=== PATIENT | female | born 1945 | race African-American/Black ===

== ENCOUNTER → 2017-04-08 | Outpatient (CLI) | payer MEDICAID, MEDICARE ==
[2014-08-26 15:00] VITALS: BP 147/87
[~2017-04-08] MED LIST: DILT180C2 PO; HYDR12.58 PO; LISI-334 PO; LISI1TAB7 PO; OXYC1TAB7 PO; POTA20TA82 PO
--- NOTE | 2017-04-08 10:28 | RAD ---
Exam performed: Right upper quadrant ultrasound. History: Right upper quadrant abdominal pain, history of ascites. Date of service: 04/08/17. Comparison: CT abdomen and pelvis from 08/18/14 Technique: Real-time grayscale imaging of the right upper abdomen is performed and images are obtained. Findings: The liver is normal in size and echogenicity without focal lesions. There is no intra or extrahepatic biliary ductal dilatation. Common bile duct is nondilated. Large shadowing gallstone measuring greater than 1.9 cm. No pericholecystic fluid or gallbladder wall thickening is identified. Patient reports tenderness in the right upper quadrant while scanning. The right kidney measures 9.0 x 4.3 x 5.0 cm. The visualized pancreas and IVC appear normal. No free fluid. Impression: Cholelithiasis. Although there is no evidence of gallbladder wall thickening or pericholecystic fluid, however the sonographic White's sign raises concern for early acute cholecystitis.
== END | disposition home or self-care (01) ==
LOC: US 09:14
PROVIDERS: ATTEND Internal Medicine
DX: K80.20 Calculus of gallbladder without cholecystitis without obstruction (principal); Z87.19 Personal history of other diseases of the digestive system
CPT/HCPCS: 76705

== ENCOUNTER → 2017-07-06 | Outpatient (CLI) | payer MEDICARE ==
[2014-08-26 15:00] VITALS: BP 147/87
[~2017-07-06] MED LIST changes: +ACET1TAB30 PO; +NAPR500T PO; +OXYC-323 PO
[2017-07-06 13:47] LABS: BASO # 0.1 x10^3/uL (0.0-0.2); BASO % 1 % (0-3); EOS % 3 % (0-3); HEMATOCRIT 31.6 % (36.0-47.0); HEMOGLOBIN 10.6 g/dL (12.0-15.5); LYMPH # 2.4 x10^3/uL (1.0-4.8); LYMPH % 32 % (24-48); MEAN CORPUSCULAR HEMOGLOBIN 31 pg (25-35); MEAN CORPUSCULAR HGB CONC 34 g/dL (31-37); MEAN CORPUSCULAR VOLUME 91 fL (79-100); MONO % 6 % (0-9); NEUT % 59 % (31-73); PLATELET COUNT 245 x10^3/uL (140-400); RED BLOOD COUNT 3.47 x10^6/uL (3.50-5.40); RED CELL DISTRIBUTION WIDTH 14.8 % (11.5-14.5); WHITE BLOOD COUNT 7.4 x10^3/uL (4.0-11.0)
[2017-07-06 14:10] LABS: ALBUMIN 3.9 g/dL (3.4-5.0); CALCIUM 9.4 mg/dL (8.5-10.1); CREATININE 1.3 mg/dL (0.6-1.0); GFR 49.1; POTASSIUM 4.2 mmol/L (3.5-5.1); TOTAL BILIRUBIN 0.3 mg/dL (0.2-1.0); TOTAL PROTEIN 7.9 g/dL (6.4-8.2)
== END | disposition home or self-care (01) ==
LOC: SURGPAT 12:14
PROVIDERS: ATTEND Surgery
DX: Z01.818 Encounter for other preprocedural examination (principal)
CPT/HCPCS: 36415; 80053; 85027

== ENCOUNTER 2017-07-13 08:54 | Day surgery (SDC) | payer MEDICARE ==
[~2017-07-13] VITALS: Ht 162.6 cm; Wt 68.9 kg
[~2017-07-13 08:54] MED LIST changes: +BUPIVAC MPF-EPI 0.5%-1:200000 30 ML VIAL. ONE; +HYDROmorphone 2 MG/ML VIAL IV PRN; +IOHEXOL 300 MG/ML 50 ML VIAL. ONE; +IV RINGERS,LACTATED 1000ML 1,000 ML IV SCH; +LIDOCAINE 1% 1 ML SYRINGE. ID PRN; +ONDANSETRON PF 4 MG/2 ML VIAL. IV PRN; -OXYC-323 PO; +PROCHLORPERAZINE 10 MG/2 ML VIAL. IV PRN; +SURGICEL HEMOSTAT 4X8 EACH. ONE; +fentaNYL PF VIAL 100 MCG/2 ML VIAL IV PRN
[2017-07-13] MEDS ORDERED: PROPOFOL 20 ML IV ONE (10:01)
[2017-07-13] MEDS ORDERED: ONDANSETRON PF 4 MG/2 ML VIAL. ONE (10:02)
[2017-07-13] MEDS ORDERED: LIDOCAINE 2% PF Vial for OR 5 ML VIAL. ONE (10:02)
[2017-07-13] MEDS ORDERED: DEXAMETHASONE SOD PHOS 20 MG/5 ML VIAL. ONE (10:02)
[2017-07-13] MEDS ORDERED: fentaNYL PF VIAL 250 MCG/5 ML VIAL ONE (10:03)
[2017-07-13] MEDS ORDERED: MIDAZOLAM HCL/PF 2 MG/2 ML VIAL. ONE (10:35)
--- NOTE | 2017-07-13 10:48 | PDOC ---
Provider Note Provider Note I saw her in the preop/outpt area. questions answered and she desires to proceed. spent additional time discussing the fact that her intestinal injury risk is higher given her prior laparotomy. i will make my initial incision away from her prior incision to minimize the risk. HAKEEM SANTANA MD Jul 13, 2017 10:48
[2017-07-13] MEDS ORDERED: GLYCOPYRROLATE 1 MG/5 ML VIAL. ONE (11:05)
[2017-07-13] MEDS ORDERED: NEOSTIGMINE 10 MG/10 ML VIAL. ONE (11:20)
[2017-07-13] MEDS ORDERED: KETOROLAC 60 MG/2 ML INJ FOR OR. ONE (11:24)
[2017-07-13] MEDS ORDERED: SEVOFLURANE 31 TO 60 MINUTES. IH ONE (11:27)
--- NOTE | 2017-07-13 11:32 | RAD ---
Intraoperative cholangiogram, 07/13/2017: History: Cholecystectomy 3 spot films from surgery are presented for review. Contrast has been injected into the cystic duct remnant. 10 seconds of fluoroscopy time was utilized. There is good flow of contrast into the duodenum at the ampulla. No filling defect is seen in the common duct to suggest a retained stone. The intrahepatic bile ducts are incompletely opacified. No contrast extravasation is seen. IMPRESSION: No significant abnormality is detected.
[2017-07-13] MEDS ORDERED: PROCHLORPERAZINE 10 MG/2 ML VIAL. ONE (11:34)
[2017-07-13] MEDS ORDERED: fentaNYL PF VIAL 100 MCG/2 ML VIAL ONE ×2 (11:35→12:23)
[2017-07-13] MEDS ORDERED: OXYC-323 PO (11:41)
--- NOTE | 2017-07-13 11:47 | PDOC ---
BRIEF OPERATIVE NOTE Pre-Op Diagnosis cholelithiasis lap rene, ioc k suleiman castorena ebl 20 ivf 400 travis well to rr stable specimen HAKEEM Mason MD Jul 13, 2017 11:47
[2017-07-13] MEDS ORDERED: ceFAZolin 2GM PREMIX 2 GM/50 ML BAG IV ONE (12:00)
[2017-07-13] MEDS: fentaNYL PF VIAL 100 MCG/2 ML VIAL IV PRN ×3 (12:00→12:45)
[2017-07-13] MEDS ORDERED: MORPHINE SULFATE 2 MG/ML DISP.SYRIN. ONE (12:23)
[2017-07-13] MEDS: MORPHINE SULFATE 2 MG/ML DISP.SYRIN. IV PRN ×2 (12:33→13:04)
[2017-07-13] MEDS ORDERED: oxyCODONE/APAP 5/325 1 TAB TABLET ONE (13:14)
[2017-07-13] MEDS ORDERED: oxyCODONE/APAP 5/325 1 TAB TABLET PO ONE (13:15)
--- NOTE | 2017-07-13 13:23 | OP ---
DATE OF SURGERY: 07/13/2017 PREOPERATIVE DIAGNOSIS: Symptomatic cholelithiasis. POSTOPERATIVE DIAGNOSIS: Symptomatic cholelithiasis. PROCEDURE: Laparoscopic cholecystectomy with intraoperative cholangiogram. SURGEON: Iris Santana M.D. ANESTHESIA: General. ESTIMATED BLOOD LOSS: 20 mL. INTRAVENOUS FLUIDS: 400 mL. INDICATIONS: The patient is a 71-year-old female who presents with abdominal pain consistent with symptomatic cholelithiasis. Ultrasound confirmed cholelithiasis. FINDINGS: Intraoperative cholangiogram is normal. DESCRIPTION OF PROCEDURE: After informed consent was obtained, the patient was taken to the operating room and placed in the supine position. After adequate induction of general anesthesia, she was prepped and draped in usual sterile fashion. An epigastric incision was made with a scalpel. Subcutaneous tissue divided with cautery. The fascia was identified and opened with cautery anteriorly. A [id number] 0 Vicryl suture was placed through the fascia and clamped to be tied down. At the completion of the surgery, the rectus fiber muscles were then spread with S-retractors and the posterior fascia was incised sharply. The peritoneum was exposed and it was incised sharply. A 10 mm port was then placed directly into the peritoneal cavity and pneumoperitoneum was established under direct vision, which revealed good port placement. No evidence of entry trauma. The camera was directed back down towards the umbilicus. She had some adhesions in the midline from her previous laparotomy. An area on the right lateral abdomen just at the level of the umbilicus was free of adhesions and this area was chosen for her periumbilical port placement. The site was injected with local anesthetic. Skin incision was made and then under direct vision, a 5 mm incision was made to the right of the umbilicus. This was used then for the camera port. Camera was placed in this 5 mm incision. She was placed head up, rotated towards her left. Two additional right 5 mm lateral ports were placed under direct vision after injecting the sites with local anesthetic. The right upper quadrant was free of adhesions. The fundus of the gallbladder was retracted over liver and slightly towards the right. The infundibulum was retracted towards the right and towards her toes to open the triangle of Calot. The leading peritoneal edge was scored with cautery medially and laterally and carried back towards the liver. [place] dissector was used to dissect out the triangle of Calot. At the completion of dissection, 2 structures were seen leading directly to the gallbladder, one was a cystic artery, one was a cystic duct. The gallbladder had been dissected away from the cystic plate and the liver could be seen behind the gallbladder. She has another small arterial structure that ran between the gallbladder and liver bed ____ along the body of the gallbladder. This was able to be dissected away from the body of the gallbladder. There was 1 branch that did feed the infundibulum of the gallbladder directly. This was a small branch. Otherwise, main portion of this artery was preserved throughout the procedure. At this case, the cystic artery was clipped twice proximally and once distally and divided sharply. A clip was placed on the cystic duct adjacent to the gallbladder. Ductotomy was made with scissors. Intraoperative cholangiogram showed free flow of contrast to the cystic duct, common bile duct, common hepatic, beginning of the left and right hepatic duct and free flow of contrast into the duodenum with no filling defects noted. The catheter was removed. The cholangiogram was interpreted as normal and it was completed. Three clips were placed on the cystic duct distal to the ductotomy. Ductotomy completed with scissors. The small arterial branch that was seen in the infundibulum of the gallbladder was controlled twice with a clip power hair clipper and then divided distally. Gallbladder was removed from the bed of the liver with cautery. It was placed in laparoscopic bag and brought out through the epigastric incision. The right upper quadrant was inspected. It was hemostatic. The ports removed under direct vision. They were hemostatic. Pneumoperitoneum was desufflated. The epigastric fascial suture was then tied down and then skin incisions were closed with 4-0 Monocryl in subcuticular fashion. Sterile dressings were placed. She tolerated the procedure well. There were no apparent complications. She was then transferred in stable condition to the recovery room. IRIS SANTANA MD DR: MARCELINA/dania JOB#: [id number] / [id number]
[2017-07-13 13:45] VITALS: BP 143/69
== END 2017-07-13 14:10 | disposition home or self-care (01) ==
LOC: SURG 08:54
PROVIDERS: ATTEND Surgery
DX: K80.20 Calculus of gallbladder without cholecystitis without obstruction (principal); E78.00 Pure hypercholesterolemia, unspecified; I10 Essential (primary) hypertension; M19.90 Unspecified osteoarthritis, unspecified site; F32.9 Major depressive disorder, single episode, unspecified; Z90.710 Acquired absence of both cervix and uterus; Z86.69 Personal history of other diseases of the nervous system and sense organs; Z87.39 Personal history of other diseases of the musculoskeletal system and connective tissue
CPT/HCPCS: 47563; 74300; J0690; J1100; J1885; J2250; J2270; J2405; J2704; J2710; J3010; J3490; J7030; Q9967; J0780; J2001

== ENCOUNTER → 2017-11-25 | Day surgery (SDC) | payer MEDICARE, MEDICAID ==
[~2017-11-25] MED LIST changes: -ACET1TAB30 PO; -BUPIVAC MPF-EPI 0.5%-1:200000 30 ML VIAL. ONE; -DILT180C2 PO; -HYDR12.58 PO; -HYDROmorphone 2 MG/ML VIAL IV PRN; -IOHEXOL 300 MG/ML 50 ML VIAL. ONE; -IV RINGERS,LACTATED 1000ML 1,000 ML IV SCH; -LIDOCAINE 1% 1 ML SYRINGE. ID PRN; +LIDOCAINE 1% PF 2 ML VIAL. ID; +LIDOCAINE 2% PF Vial for OR 5 ML VIAL.; -LISI-334 PO; -LISI1TAB7 PO; +MIDAZOLAM HCL/PF 2 MG/2 ML VIAL. IV; -NAPR500T PO; -ONDANSETRON PF 4 MG/2 ML VIAL. IV PRN; -OXYC1TAB7 PO; -POTA20TA82 PO; -PROCHLORPERAZINE 10 MG/2 ML VIAL. IV PRN; +PROPOFOL 20 ML IV; -SURGICEL HEMOSTAT 4X8 EACH. ONE; +fentaNYL PF VIAL 100 MCG/2 ML VIAL IV; -fentaNYL PF VIAL 100 MCG/2 ML VIAL IV PRN
[2017-11-25] MEDS: IV RINGERS,LACTATED 1000ML 1,000 ML IV (13:50)
== END | disposition home or self-care (01) ==
LOC: ENDOS 13:01
DX: K64.0 First degree hemorrhoids (principal); E78.00 Pure hypercholesterolemia, unspecified; I10 Essential (primary) hypertension; F32.9 Major depressive disorder, single episode, unspecified; M19.90 Unspecified osteoarthritis, unspecified site; Z90.49 Acquired absence of other specified parts of digestive tract; Z90.710 Acquired absence of both cervix and uterus; Z87.39 Personal history of other diseases of the musculoskeletal system and connective tissue
CPT/HCPCS: 45378; J2704

== ENCOUNTER → 2018-03-21 | Outpatient (CLI) | payer MEDICARE, MEDICAID ==
[~2018-03-21] MED LIST changes: +CONTRAST GIVEN MC; -LIDOCAINE 1% PF 2 ML VIAL. ID; -LIDOCAINE 2% PF Vial for OR 5 ML VIAL.; -MIDAZOLAM HCL/PF 2 MG/2 ML VIAL. IV; -PROPOFOL 20 ML IV; -fentaNYL PF VIAL 100 MCG/2 ML VIAL IV
[2018-03-21 12:22] LABS: BLOOD UREA NITROGEN 22 mg/dL (7-20)
[2018-03-21 12:22] LABS: CREATININE 1.4 mg/dL (0.6-1.0)
[2018-03-21] MEDS: IOHEXOL 240 MG/ML 50ML VIAL. PO (12:59)
[2018-03-21] MEDS: IOHEXOL 300 MG/ML 100ML VIAL. IV (12:59)
== END | disposition home or self-care (01) ==
LOC: CT 11:02
DX: K43.9 Ventral hernia without obstruction or gangrene (principal); M48.061 Spinal stenosis, lumbar region without neurogenic claudication; K76.89 Other specified diseases of liver; I10 Essential (primary) hypertension; Z90.49 Acquired absence of other specified parts of digestive tract; Z90.710 Acquired absence of both cervix and uterus
CPT/HCPCS: 36415; 74177; 82565; 84520; Q9966; Q9967

== ENCOUNTER 2018-04-03 12:22 | Emergency (ER) | payer MEDICARE, MEDICAID ==
[2018-04-03 13:36] LABS: ADD MAN DIFF? NO
[2018-04-03 13:43] LABS: BASO # 0.1 x10^3/uL (0.0-0.2); BASO % 1 % (0-3); EOS # 0.4 x10^3/uL (0.0-0.7); EOS % 5 % (0-3); HEMATOCRIT 31.1 % (36.0-47.0); HEMOGLOBIN 10.4 g/dL (12.0-15.5); LYMPH # 2.7 x10^3/uL (1.0-4.8); LYMPH % 37 % (24-48); MEAN CORPUSCULAR HEMOGLOBIN 30 pg (25-35); MEAN CORPUSCULAR HGB CONC 33 g/dL (31-37); MEAN CORPUSCULAR VOLUME 91 fL (79-100); MONO # 0.7 x10^3/uL (0.0-1.1); MONO % 9 % (0-9); NEUT # 3.5 x10^3uL (1.8-7.7); NEUT % 48 % (31-73); PLATELET COUNT 268 x10^3/uL (140-400); RED BLOOD COUNT 3.42 x10^6/uL (3.50-5.40); RED CELL DISTRIBUTION WIDTH 14.1 % (11.5-14.5); WHITE BLOOD COUNT 7.3 x10^3/uL (4.0-11.0)
[2018-04-03 13:55] LABS: ANION GAP 6 (6-14); BLOOD UREA NITROGEN 19 mg/dL (7-20); BUN/CREATININE RATIO 15 (6-20); CALCIUM 9.4 mg/dL (8.5-10.1); CARBON DIOXIDE 32 mmol/L (21-32); CHLORIDE 105 mmol/L (98-107); CREATININE 1.3 mg/dL (0.6-1.0); GLUCOSE 88 mg/dL (70-99); SODIUM 143 mmol/L (136-145)
[2018-04-03 14:01] LABS: ALBUMIN 3.6 g/dL (3.4-5.0); ALBUMIN/GLOBULIN RATIO 0.9 (1.0-1.7); ALK PHOS 93 U/L (46-116); ALT (SGPT) 29 U/L (14-59); AST (SGOT) 28 U/L (15-37); TOTAL BILIRUBIN 0.2 mg/dL (0.2-1.0); TOTAL PROTEIN 7.4 g/dL (6.4-8.2)
[2018-04-03 14:08] LABS: TROPONINI < 0.017 ng/mL (0.000-0.055)
== END 2018-04-03 15:07 | disposition home or self-care (01) ==
LOC: ER 15:07
DX: R42 Dizziness and giddiness (principal); I10 Essential (primary) hypertension; M79.7 Fibromyalgia; M19.90 Unspecified osteoarthritis, unspecified site
CPT/HCPCS: 36415; 80053; 84484; 85025; 93005; 99285-25

== ENCOUNTER → 2018-04-11 | Outpatient (CLI) | payer MEDICARE, MEDICAID ==
[2018-04-11] MEDS: BARIUM SULFATE 60% 355 ML SUSP PO (08:35)
== END | disposition home or self-care (01) ==
LOC: RAD 07:55
DX: R10.31 Right lower quadrant pain (principal); R19.4 Change in bowel habit; I10 Essential (primary) hypertension; E78.00 Pure hypercholesterolemia, unspecified
CPT/HCPCS: 74250

== ENCOUNTER → 2018-08-31 | Outpatient (CLI) | payer MEDICARE, MEDICAID ==
[2018-04-03 14:55] VITALS: BP 122/63
[~2018-08-31] MED LIST changes: +ACET1TAB30 PO; -CONTRAST GIVEN MC; +DIAZ5TAB PO; +DILT180C2 PO; +GADOBUTROL 7.5 MMOL/7.5 ML VIAL IV ONE; +HYDR12.58 PO; +LISI-334 PO; +LISI1TAB7 PO; +MECL25TA3 PO; +NAPR-683 PO; +OXYC-323 PO; +OXYC1TAB7 PO; +POTA20TA82 PO
--- NOTE | 2018-08-31 14:55 | KCIC ---
MRI Brain with and without contrast History: Dizziness, previous left ear surgery, left-sided hearing loss Technique: Multiplanar, multi sequential pre and postcontrast MR imaging was performed of the brain, dedicated images of internal auditory canals also obtained. Contrast: 6 cc Gadavist Comparison: None Findings: There is no evidence of recent infarct or cytotoxic edema. The ventricles, sulci, and cisterns are within normal limits in size and configuration. There is no significant midline shift, intraaxial mass effect, or focal abnormal extra-axial fluid collection. There is very mild amorphous FLAIR hyperintense signal of the bilateral parietal white matter and a couple of small more defined foci of the right frontal deep white matter There is no nodular parenchymal or leptomeningeal enhancement. There is preservation of the major intracranial flow-voids at the skull base. There is mild right cerebellar tonsil ectopia projecting about 4 mm inferior to the foramen magnum, left cerebellar tonsil at the margin. There is no significant abnormality of the pineal gland. 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 There is some increased CSF signal of the optic nerve sheaths, mild tortuosity. There is patchy moderate to severe ethmoid air cell mucosal thickening, mild to moderate left frontal sinus mucosal thickening. There are likely mucous retention cysts of the right maxillary sinus with the largest about 1.6 cm. The mastoid air cells are aerated. There is preserved marrow signal of the clivus. There is no nodular enhancement of the cerebellopontine angles or the internal auditory canals. Impression: 1. There is no evidence of recent infarct or abnormal intracranial enhancement. There is no nodular enhancement of the cerebral pontine angles or the internal auditory canals. Minimal T2 and FLAIR hyperintense abnormality of the supratentorial parenchyma is nonspecific, most commonly due to to chronic microvascular ischemic disease in a patient this age. 2. There is paranasal sinus mucosal thickening as stated greatest of the ethmoid air cells. There are right maxillary sinus mucous retention cysts. 3. There is nonspecific increased CSF signal of the optic nerve sheaths and partially empty sella, nonspecific findings which may be incidental although can be associated with intracranial hypertension. Electronically signed by: Dylan Levy MD (08/31/2018 2:50 PM) [id number]
== END | disposition home or self-care (01) ==
LOC: KCIC MRI 12:21
PROVIDERS: ATTEND Otolaryngology
DX: J34.1 Cyst and mucocele of nose and nasal sinus (principal); G93.2 Benign intracranial hypertension
CPT/HCPCS: 70553; 82565

== ENCOUNTER → 2018-09-14 | Day surgery (SDC) | payer MEDICARE, MEDICAID ==
[~2018-09-14] MED LIST changes: -GADOBUTROL 7.5 MMOL/7.5 ML VIAL IV ONE; +IV RINGERS,LACTATED 1000ML 1,000 ML IV SCH; +LIDOCAINE 1% PF 2 ML VIAL. ID PRN; +MIDAZOLAM HCL/PF 2 MG/2 ML VIAL. IV PRN; +PROPOFOL 20 ML IV ONE; +fentaNYL PF VIAL 100 MCG/2 ML VIAL IV PRN
[2018-09-14 13:04] VITALS: BP 123/57
== END | disposition home or self-care (01) ==
LOC: ENDOS 10:44
PROVIDERS: ATTEND Internal Medicine Gastroenterology
DX: K29.50 Unspecified chronic gastritis without bleeding (principal); D50.9 Iron deficiency anemia, unspecified; I10 Essential (primary) hypertension; F32.9 Major depressive disorder, single episode, unspecified; M19.90 Unspecified osteoarthritis, unspecified site; M79.7 Fibromyalgia; Z91.018 Allergy to other foods; G47.30 Sleep apnea, unspecified; Z79.899 Other long term (current) drug therapy; Z83.79 Family history of other diseases of the digestive system
CPT/HCPCS: 43235; J2704

== ENCOUNTER → 2019-03-15 | Outpatient (CLI) | payer MEDICARE, MEDICAID ==
[2018-09-14 13:04] VITALS: BP 123/57
[~2019-03-15] MED LIST changes: -IV RINGERS,LACTATED 1000ML 1,000 ML IV SCH; -LIDOCAINE 1% PF 2 ML VIAL. ID PRN; -MIDAZOLAM HCL/PF 2 MG/2 ML VIAL. IV PRN; -OXYC-323 PO; +OXYC1TAB15 PO; -PROPOFOL 20 ML IV ONE; -fentaNYL PF VIAL 100 MCG/2 ML VIAL IV PRN
[2019-03-15 16:06] LABS: BASO % 1 % (0-3); EOS # 0.2 x10^3/uL (0.0-0.7); EOS % 3 % (0-3); HEMATOCRIT 32.2 % (36.0-47.0); HEMOGLOBIN 10.4 g/dL (12.0-15.5); LYMPH # 2.7 x10^3/uL (1.0-4.8); LYMPH % 38 % (24-48); MEAN CORPUSCULAR HEMOGLOBIN 29 pg (25-35); MEAN CORPUSCULAR HGB CONC 32 g/dL (31-37); MEAN CORPUSCULAR VOLUME 91 fL (79-100); MONO # 0.6 x10^3/uL (0.0-1.1); MONO % 8 % (0-9); NEUT # 3.5 x10^3uL (1.8-7.7); NEUT % 50 % (31-73); PLATELET COUNT 276 x10^3/uL (140-400); RED BLOOD COUNT 3.53 x10^6/uL (3.50-5.40); RED CELL DISTRIBUTION WIDTH 13.9 % (11.5-14.5)
[2019-03-15 16:13] LABS: AMPHETAMINE/METHAMPHETAMINE NEG (NEG); BARBITURATES NEG (NEG); BENZODIAZEPINES NEG (NEG); CANNABINOIDS NEG (NEG); COCAINE NEG (NEG); METHADONE NEG (NEG); OPIATES NEG (NEG); PHENCYCLIDINE NEG (NEG)
[2019-03-15 16:20] LABS: ALBUMIN 3.8 g/dL (3.4-5.0); ALBUMIN/GLOBULIN RATIO 0.9 (1.0-1.7); CALCIUM 9.5 mg/dL (8.5-10.1); CREATININE 1.4 mg/dL (0.6-1.0); GFR 44.9; POTASSIUM 3.8 mmol/L (3.5-5.1); TOTAL BILIRUBIN 0.2 mg/dL (0.2-1.0)
== END | disposition home or self-care (01) ==
LOC: LAB 15:39
PROVIDERS: ATTEND Psychiatry & Neurology Neurology
DX: R51 Headache (principal); Z79.899 Other long term (current) drug therapy
CPT/HCPCS: 36415; 80053; 80307; 84443; 85025; 85651

== ENCOUNTER → 2019-05-03 | Outpatient (CLI) | payer MEDICARE, MEDICAID ==
[2018-09-14 13:04] VITALS: BP 123/57
--- NOTE | 2019-05-09 12:10 | EEG ---
DATE OF SERVICE: 05/03/2019 EEG NUMBER: [id number] OBJECTIVE: This is a 73-year-old female patient with history of cognitive function decline. EEG was requested to evaluate cerebral activity and help rule out subclinical seizures. METHODS: Twenty electrodes were applied according to the international 10-20 electrode placement system. EKG monitoring, hyperventilation, intermittent photic stimulation, monopolar and bipolar montages are routinely utilized. The record was obtained on a digital system with video monitoring. FINDINGS: 1. Background: The patient was recorded in the awake, drowsy, and sleep states. The overall background amplitude is 10-20 microvolts. A posterior dominant rhythm of 8 Hz is observed. 2. Abnormalities: No specific epileptiform discharge or electrographic seizure is seen. No focal or diffuse slowing. 3. Activation: Hyperventilation was performed with fair efforts and normal response. Intermittent photic stimulation was performed with photic driving. No specific epileptiform discharge or electrographic seizure induced by hyperventilation or intermittent photic stimulation. IMPRESSION: This EEG is within the normal limits of the study for the awake, drowsy, and sleep state. No focal, lateralizing, specific epileptiform discharge or electrographic seizure is seen. ROCIO BARRAZA MD DR: JAMIR/dania JOB#: [id number] / [id number] JARON
== END | disposition home or self-care (01) ==
LOC: RT 07:32
PROVIDERS: ATTEND Psychiatry & Neurology Neurology
DX: R41.89 Other symptoms and signs involving cognitive functions and awareness (principal)
CPT/HCPCS: 95816